=== PATIENT | male | born 1950 | race Caucasian/White ===

== ENCOUNTER → 2017-11-17 | Outpatient (CLI) | payer MEDICARE ==
[~2017-11-17] MED LIST: LIDOCAINE 1% MDV 20ML VIAL As Ordered
== END ==
LOC: M RADPRO 10:36
DX: C22.8 Malignant neoplasm of liver, primary, unspecified as to type (principal); D38.2 Neoplasm of uncertain behavior of pleura; Q44.6 Cystic disease of liver; K21.9 Gastro-esophageal reflux disease without esophagitis; I25.10 Atherosclerotic heart disease of native coronary artery without angina pectoris; K76.9 Liver disease, unspecified; F17.290 Nicotine dependence, other tobacco product, uncomplicated; Z79.899 Other long term (current) drug therapy; Z79.82 Long term (current) use of aspirin; Z88.8 Allergy status to other drugs, medicaments and biological substances; Z86.69 Personal history of other diseases of the nervous system and sense organs; Z87.448 Personal history of other diseases of urinary system; Z95.5 Presence of coronary angioplasty implant and graft
CPT/HCPCS: 47000

== ENCOUNTER → 2017-11-26 | Outpatient (REF) | payer MEDICARE ==
[2017-11-26 13:54] LABS: PARTIAL THROMBOPLASTIN TIME 37.8 SECONDS (26.8-37.9)
[2017-11-26 14:01] LABS: INR 1.04; PROTHROMBIN TIME 13.8 SECONDS (12.4-14.5)
== END ==
LOC: M LAB REF 13:17
DX: C78.7 Secondary malignant neoplasm of liver and intrahepatic bile duct (principal); Z70.1 Counseling related to patient's sexual behavior and orientation
CPT/HCPCS: 85610

== ENCOUNTER → 2017-12-01 | Outpatient (CLI) | payer MEDICARE ==
[~2017-12-01] MED LIST changes: +CLINDAMYCIN 600 MG/50 ML PREMIX BAG As Ordered; -LIDOCAINE 1% MDV 20ML VIAL As Ordered; +LIDOCAINE 2% MDV 20 ML VIAL As Ordered
== END | disposition home or self-care (01) ==
LOC: M IRPRO 09:00
DX: C78.7 Secondary malignant neoplasm of liver and intrahepatic bile duct (principal); C80.1 Malignant (primary) neoplasm, unspecified
CPT/HCPCS: 36561

== ENCOUNTER → 2018-02-12 | Outpatient (REF) | payer MEDICARE | LOC: M LAB REF 11:00 | DX: C78.7 Secondary malignant neoplasm of liver and intrahepatic bile duct (principal); C80.1 Malignant (primary) neoplasm, unspecified | CPT/HCPCS: 88300 ==

== ENCOUNTER 2018-04-20 15:13 | Outpatient (REF) | payer MEDICARE | END 2018-04-21 | LOC: M LAB REF 15:13 | DX: C16.0 Malignant neoplasm of cardia (principal) | CPT/HCPCS: 88300 ==

== ENCOUNTER 2018-05-18 13:11 | Inpatient (IN) | payer MEDICARE ==
[2018-05-18] MEDS ORDERED: ONDANSETRON 4MG/2ML VIAL (J2405) IV (13:15)
[2018-05-18] MEDS ORDERED: ACETAMINOPHEN TAB 650MG DOSE (2X325MG) PO (13:15)
[2018-05-18 14:03] LABS: HEMOGLOBIN 8.7 g/dl (13.5-17.5); MEAN CORPUSCULAR HEMOGLOBIN 32.5 pg (27.0-33.0); MEAN CORPUSCULAR HGB CONC 33.5 g/dl (32.0-36.5); RED BLOOD COUNT 2.68 10^6/uL (4.30-6.10); RED CELL DISTRIBUTION WIDTH 15.5 % (11.5-14.5)
[2018-05-18 14:05] LABS: ADD MANUAL DIFFER YES; DIFF SLIDE NUMBER 292; PLATELET COUNT, AUTOMATED 43 10^3/uL (150-450); POS COUNT POS FLAG; POSITIVE DIFF POS FLAG; POSITIVE MORPH POS FLAG; WHITE BLOOD COUNT 1.5 10^3/uL (4.0-10.0)
[2018-05-18] MEDS ORDERED: NS 1,000 ML IV (14:15)
[2018-05-18 14:25] LABS: LACTIC ACID SEPSIS PROTOCOL 1.3 MMOL/L (0.4-2.0)
[2018-05-18 14:31] LABS: LYMPHOCYTES 78 % (16-52); MONOCYTES 4 % (0-8); NEUTROPHILS 18 % (35-75); PLATELET ESTIMATE MARKED DECREASE (NORMAL)
[2018-05-18 14:32] LABS: IMMATURE PLATELET FRACTION % 6.9 % (0.0-10.9)
[2018-05-18 14:33] LABS: CK-MB VALUE MASS < 1.0 NG/ML (<3.6); CPK CREATINE PHOSPHOKINASE 35 U/L (39-308); MB/CK RELATIVE INDEX 2.86 (< OR =4); TROPONIN I < 0.02 NG/ML (< 0.10)
[2018-05-18 14:35] LABS: ALBUMIN 3.8 GM/DL (3.2-5.2); ALBUMIN/GLOBULIN RATIO 1.06 (1.00-1.93); ALKALINE PHOSPHATASE 81 U/L (45-117); ALT/SGPT 18 U/L (12-78); ANION GAP 5 MEQ/L (8-16); AST/SGOT 7 U/L (7-37); BILIRUBIN,DIRECT 0.1 MG/DL (0.0-0.2); BILIRUBIN,TOTAL 0.5 MG/DL (0.2-1.0); BLOOD UREA NITROGEN 8 MG/DL (7-18); C REACTIVE PROTEIN QUANTITATIV 1.23 MG/DL (0.00-0.30); CALCIUM LEVEL 8.7 MG/DL (8.8-10.2); CARBON DIOXIDE LEVEL 28 MEQ/L (21-32); CHLORIDE LEVEL 101 MEQ/L (98-107); CREATININE FOR GFR 0.94 MG/DL (0.70-1.30); GLOMERULAR FILTRATION RATE > 60.0 (>49); GLUCOSE, FASTING 103 MG/DL (70-100); MAGNESIUM LEVEL 2.3 MG/DL (1.8-2.4); POTASSIUM SERUM 4.1 MEQ/L (3.5-5.1); SODIUM LEVEL 134 MEQ/L (136-145); TOTAL PROTEIN 7.4 GM/DL (6.4-8.2)
[2018-05-18] MEDS: LevoFLOXacin IV 750 MG in APPROPRIATE DILUENT 1 EA IV (15:02)
[2018-05-18] MEDS: KETOROLAC 30 MG/ML VIAL (J1885) IV (15:06)
[2018-05-18] MEDS: PERCOCET 5MG/325MG TAB PO ×2 (15:09→17:24)
[2018-05-18 15:34] LABS: URIC ACID 3.3 MG/DL (3.5-7.2)
[2018-05-18] MEDS ORDERED: ISOVUE-370 76% 100ML VIAL (Q9967) As Ordered (15:40)
[2018-05-18 15:46] LABS: OSMOLALITY SERUM 275 MOSM/KG (280-301)
[2018-05-18 15:47] LABS: ERYTHROCYTE SEDIMENTATION RATE 70 mm/hr (0-20)
[2018-05-18] MEDS: LACTOBACILLUS ACIDOPHILUS CAP (BACID) PO (17:23)
[2018-05-18] MEDS: MORPHINE 4 MG/ML 1ML VIAL/SYRINGE (J2270) IV (17:30)
[2018-05-18] MEDS ORDERED: MORPHINE 4 MG/ML 1ML VIAL/SYRINGE (J2270) IV (17:30)
[2018-05-18 17:48] LABS: OSMOLALITY URINE 204 MOSM/KG (500-800)
[2018-05-18 20:26] LABS: CK-MB VALUE MASS < 1.0 NG/ML (<3.6); CPK CREATINE PHOSPHOKINASE 32 U/L (39-308); MB/CK RELATIVE INDEX 3.12 (< OR =4); TROPONIN I < 0.02 NG/ML (< 0.10)
[2018-05-18] MEDS: OMEGA-3 1000MG CAPSULE PO (20:57)
[2018-05-18] MEDS: SIMVASTATIN 40 MG TAB PO (20:57)
[2018-05-18] MEDS: CEFEPIME HCL 2 GM in D5W MINI-BAG PLUS 50 ML IV (20:58)
[2018-05-18] MEDS: CARVedilol 3.125 MG TAB PO (21:00)
[2018-05-19 05:12] LABS: HEMATOCRIT 25.1 % (42.0-52.0); HEMOGLOBIN 8.1 g/dl (13.5-17.5); LYMPH # 0.6 10^3/uL (1.5-4.5); LYMPH % 57.1 % (24.0-44.0); MEAN CORPUSCULAR HEMOGLOBIN 31.3 pg (27.0-33.0); MEAN CORPUSCULAR HGB CONC 32.3 g/dl (32.0-36.5); MEAN CORPUSCULAR VOLUME 96.9 fl (80.0-96.0); MONO # 0.2 10^3/uL (0.0-0.8); MONO % 14.3 % (0.0-5.0); NEUTROPHILS % 21.9 % (36.0-66.0); RED BLOOD COUNT 2.59 10^6/uL (4.30-6.10); RED CELL DISTRIBUTION WIDTH 15.3 % (11.5-14.5)
[2018-05-19 05:30] LABS: ANION GAP 5 MEQ/L (8-16); BLOOD UREA NITROGEN 14 MG/DL (7-18); CALCIUM LEVEL 8.2 MG/DL (8.8-10.2); CARBON DIOXIDE LEVEL 26 MEQ/L (21-32); CHLORIDE LEVEL 102 MEQ/L (98-107); CK-MB VALUE MASS < 1.0 NG/ML (<3.6); CPK CREATINE PHOSPHOKINASE 32 U/L (39-308); CREATININE FOR GFR 1.07 MG/DL (0.70-1.30); GLOMERULAR FILTRATION RATE > 60.0 (>49); GLUCOSE, FASTING 97 MG/DL (70-100); MB/CK RELATIVE INDEX 3.12 (< OR =4); POTASSIUM SERUM 4.5 MEQ/L (3.5-5.1); SODIUM LEVEL 133 MEQ/L (136-145); TROPONIN I < 0.02 NG/ML (< 0.10)
[2018-05-19 05:51] LABS: IMMATURE GRANULOCYTE % 5.7 % (0-3.0); NEUTROPHILS # 0.2 10^3/uL (1.8-7.7); PLATELET COUNT, AUTOMATED 42 10^3/uL (150-450); POS COUNT POS FLAG; POSITIVE DIFF POS FLAG; POSITIVE MORPH POS FLAG; WHITE BLOOD COUNT 1.1 10^3/uL (4.0-10.0)
[2018-05-19] MEDS: FINASTERIDE 5 MG TAB PO (08:27)
[2018-05-19] MEDS: OMEPRAZOLE 20 MG CAP PO (08:27)
[2018-05-19] MEDS: CARVedilol 3.125 MG TAB PO ×2 (08:27→21:00)
[2018-05-19] MEDS: MIRALAX *UNIT DOSE* 17GM PACKET PO (08:27)
[2018-05-19] MEDS: OMEGA-3 1000MG CAPSULE PO ×2 (08:28→21:00)
[2018-05-19] MEDS: LOSARTAN 25 MG TAB PO (08:28)
[2018-05-19] MEDS: CLOPIDOGREL 75 MG TAB PO (08:28)
[2018-05-19] MEDS: ASPIRIN 81 MG ENTERIC TAB PO (08:28)
[2018-05-19] MEDS: LACTOBACILLUS ACIDOPHILUS CAP (BACID) PO ×3 (08:28→17:56)
[2018-05-19] MEDS ORDERED: ENOXAPARIN 40 MG/0.4 ML SYRINGE (J1650) SC (09:00)
[2018-05-19] MEDS: FILGRASTIM 480 MCG/0.8 ML SYRINGE (J1442) SC (10:16)
[2018-05-19] MEDS: PERCOCET 5MG/325MG TAB PO (11:20)
[2018-05-19] MEDS ORDERED: PROHANCE 279.3MG/ML 15ML VIAL (A9576) As Ordered (12:41)
[2018-05-19] MEDS ORDERED: PROHANCE 279.3MG/ML 5ML VIAL (A9576) As Ordered (12:41)
[2018-05-19 12:46] LABS: CK-MB VALUE MASS < 1.0 NG/ML (<3.6); CPK CREATINE PHOSPHOKINASE 31 U/L (39-308); MB/CK RELATIVE INDEX 3.23 (< OR =4); TROPONIN I < 0.02 NG/ML (< 0.10)
[2018-05-19] MEDS: LevoFLOXacin IV 750 MG in APPROPRIATE DILUENT 1 EA IV (16:13)
[2018-05-19] MEDS: CEFEPIME HCL 2 GM in D5W MINI-BAG PLUS 50 ML IV (21:00)
[2018-05-19] MEDS: SIMVASTATIN 40 MG TAB PO (21:00)
[2018-05-20] MEDS: PERCOCET 5MG/325MG TAB PO ×3 (04:33→18:18)
[2018-05-20 06:05] LABS: HEMATOCRIT 23.3 % (42.0-52.0); HEMOGLOBIN 7.8 g/dl (13.5-17.5); MEAN CORPUSCULAR HEMOGLOBIN 31.8 pg (27.0-33.0); MEAN CORPUSCULAR HGB CONC 33.5 g/dl (32.0-36.5); MEAN CORPUSCULAR VOLUME 95.1 fl (80.0-96.0); RED BLOOD COUNT 2.45 10^6/uL (4.30-6.10); RED CELL DISTRIBUTION WIDTH 15.7 % (11.5-14.5)
[2018-05-20 06:09] LABS: ADD MANUAL DIFFER YES; DIFF SLIDE NUMBER 52; PLATELET COUNT, AUTOMATED 54 10^3/uL (150-450); POS COUNT POS FLAG; POSITIVE DIFF POS FLAG; POSITIVE MORPH POS FLAG; WHITE BLOOD COUNT 1.9 10^3/uL (4.0-10.0)
[2018-05-20 06:10] LABS: IMMATURE PLATELET FRACTION % 7.4 % (0.0-10.9)
[2018-05-20 06:25] LABS: ANION GAP 8 MEQ/L (8-16); BLOOD UREA NITROGEN 10 MG/DL (7-18); CALCIUM LEVEL 8.2 MG/DL (8.8-10.2); CARBON DIOXIDE LEVEL 26 MEQ/L (21-32); CHLORIDE LEVEL 100 MEQ/L (98-107); CREATININE FOR GFR 0.99 MG/DL (0.70-1.30); GLOMERULAR FILTRATION RATE > 60.0 (>49); GLUCOSE, FASTING 100 MG/DL (70-100); POTASSIUM SERUM 4.4 MEQ/L (3.5-5.1); SODIUM LEVEL 134 MEQ/L (136-145)
[2018-05-20 06:46] LABS: LYMPHOCYTES 36 % (16-52); MONOCYTES 2 % (0-8); NEUTROPHILS 62 % (35-75)
[2018-05-20 06:47] LABS: PLATELET ESTIMATE MARKED DECREASE (NORMAL)
[2018-05-20 06:48] LABS: OVALOCYTES 1+
[2018-05-20] MEDS: FILGRASTIM 480 MCG/0.8 ML SYRINGE (J1442) SC (09:00)
[2018-05-20] MEDS: ASPIRIN 81 MG ENTERIC TAB PO (10:54)
[2018-05-20] MEDS: MIRALAX *UNIT DOSE* 17GM PACKET PO (10:54)
[2018-05-20] MEDS: LACTOBACILLUS ACIDOPHILUS CAP (BACID) PO ×3 (10:54→18:00)
[2018-05-20] MEDS: OMEPRAZOLE 20 MG CAP PO (10:54)
[2018-05-20] MEDS: CLOPIDOGREL 75 MG TAB PO (10:54)
[2018-05-20] MEDS: CARVedilol 3.125 MG TAB PO ×2 (10:55→20:14)
[2018-05-20] MEDS: FINASTERIDE 5 MG TAB PO (10:55)
[2018-05-20] MEDS: LOSARTAN 25 MG TAB PO (10:55)
[2018-05-20] MEDS: OMEGA-3 1000MG CAPSULE PO ×2 (10:56→20:14)
[2018-05-20 12:08] LABS: HEMATOCRIT 25.7 % (42.0-52.0); HEMOGLOBIN 8.5 g/dl (13.5-17.5)
[2018-05-20] MEDS: LevoFLOXacin IV 750 MG in APPROPRIATE DILUENT 1 EA IV (15:09)
[2018-05-20] MEDS: SIMVASTATIN 40 MG TAB PO (20:14)
[2018-05-20] MEDS: SENNA 8.6 MG TAB (SENOKOT) PO (20:14)
[2018-05-20] MEDS: CEFEPIME HCL 2 GM in D5W MINI-BAG PLUS 50 ML IV (20:15)
[2018-05-21] MEDS: PERCOCET 5MG/325MG TAB PO ×2 (04:04→16:45)
[2018-05-21 06:07] LABS: HEMATOCRIT 23.7 % (42.0-52.0); HEMOGLOBIN 7.9 g/dl (13.5-17.5); MEAN CORPUSCULAR HGB CONC 33.3 g/dl (32.0-36.5); RED BLOOD COUNT 2.47 10^6/uL (4.30-6.10); RED CELL DISTRIBUTION WIDTH 16.4 % (11.5-14.5); WHITE BLOOD COUNT 2.6 10^3/uL (4.0-10.0)
[2018-05-21 06:13] LABS: PLATELET COUNT, AUTOMATED 73 10^3/uL (150-450); POSITIVE DIFF POS FLAG
[2018-05-21 06:14] LABS: ADD MANUAL DIFFER YES; DIFF SLIDE NUMBER 31; POS COUNT POS FLAG; POSITIVE MORPH POS FLAG
[2018-05-21 06:25] LABS: ANION GAP 8 MEQ/L (8-16); BLOOD UREA NITROGEN 8 MG/DL (7-18); CARBON DIOXIDE LEVEL 24 MEQ/L (21-32); CHLORIDE LEVEL 100 MEQ/L (98-107); CREATININE FOR GFR 0.93 MG/DL (0.70-1.30); GLOMERULAR FILTRATION RATE > 60.0 (>49); GLUCOSE, FASTING 98 MG/DL (70-100); POTASSIUM SERUM 4.1 MEQ/L (3.5-5.1); SODIUM LEVEL 132 MEQ/L (136-145)
[2018-05-21 08:10] LABS: ANISOCYTOSIS 1+; BASOPHILS 1 % (0-4); LYMPHOCYTES 25 % (16-52); MONOCYTES 7 % (0-8); NEUTROPHILS 67 % (35-75); OVALOCYTES 1+; PLATELET ESTIMATE DECREASED (NORMAL)
[2018-05-21] MEDS: MIRALAX *UNIT DOSE* 17GM PACKET PO (09:00)
[2018-05-21] MEDS: SENNA 8.6 MG TAB (SENOKOT) PO (09:06)
[2018-05-21] MEDS: CLOPIDOGREL 75 MG TAB PO (09:06)
[2018-05-21] MEDS: OMEGA-3 1000MG CAPSULE PO (09:06)
[2018-05-21] MEDS: OMEPRAZOLE 20 MG CAP PO (09:06)
[2018-05-21] MEDS: ASPIRIN 81 MG ENTERIC TAB PO (09:07)
[2018-05-21] MEDS: CARVedilol 3.125 MG TAB PO (09:07)
[2018-05-21] MEDS: FINASTERIDE 5 MG TAB PO (09:07)
[2018-05-21] MEDS: LACTOBACILLUS ACIDOPHILUS CAP (BACID) PO ×3 (09:07→16:43)
[2018-05-21] MEDS: LOSARTAN 25 MG TAB PO (09:07)
[2018-05-21] MEDS: FILGRASTIM 480 MCG/0.8 ML SYRINGE (J1442) SC (12:40)
[2018-05-21 14:38] LABS: BODY FLUID CULTURE Not Indicated (.); LEGIONELLA ANTIGEN URINE Negative (Negative); ORGANISM ID Not indicated. (.); SPECIMEN SOURCE Urine (.); URINE STREP PNEUMONIAE ANTIGEN Negative (Negative)
[2018-05-21] MEDS: LevoFLOXacin IV 750 MG in APPROPRIATE DILUENT 1 EA IV (15:00)
[2018-05-21 16:11] LABS: IMMEDIATE SPIN CROSSMATCH 1 1
== END 2018-05-21 20:18 | disposition home or self-care (01) | DRG 177 ==
LOC: M ICU 13:11 → M MSPAV 05-19 13:56
DX: J15.8 Pneumonia due to other specified bacteria (principal); D61.810 Antineoplastic chemotherapy induced pancytopenia; E87.1 Hypo-osmolality and hyponatremia; C16.0 Malignant neoplasm of cardia; C78.7 Secondary malignant neoplasm of liver and intrahepatic bile duct; Z66 Do not resuscitate; I25.10 Atherosclerotic heart disease of native coronary artery without angina pectoris; K21.9 Gastro-esophageal reflux disease without esophagitis; I10 Essential (primary) hypertension; E78.5 Hyperlipidemia, unspecified; Z79.899 Other long term (current) drug therapy; Z79.82 Long term (current) use of aspirin; Z88.8 Allergy status to other drugs, medicaments and biological substances; Z95.2 Presence of prosthetic heart valve; Z95.1 Presence of aortocoronary bypass graft; N40.0 Benign prostatic hyperplasia without lower urinary tract symptoms; I25.2 Old myocardial infarction; M79.10 Myalgia, unspecified site